=== PATIENT | female | born 1960 | race Caucasian/White ===

== ENCOUNTER 2016-08-28 11:01 | Outpatient (CLI) | payer OTHER ==
--- NOTE | 2016-08-28 12:48 | DIAGNOSTIC IMAGING REPORT ---
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 COMPARISON: Abdominal ultrasound 12/22/2015 FINDINGS: The liver is enlarged with heterogeneous echogenicity and slightly lobular margins. No mass or intrahepatic biliary dilatation. The gallbladder contains two mobile stones measuring six and 7 mm. The wall is normal thickness measuring 1.9 mm No pericholecystic fluid or Umaña sign. The extrahepatic common duct is normal measuring 2.5 mm The visualized pancreas is normal without ductal dilatation or peripancreatic fluid collection. The abdominal aorta is normal in its course and caliber. The retrohepatic inferior vena cava is patent. There is appropriate hepatopetal flow in the portal vein. The right kidney measures 11.2 cm in length. The left kidney measures 11.1 cm in length. Both kidneys demonstrate normal morphology and cortical thickness without hydronephrosis, cyst, solid mass, or shadowing calculus. There is a a 6 mm echogenic focus in the superior pole left kidney. Color Doppler imaging demonstrates normal blood flow in each kidney. The spleen is normal in size measuring 9.6 in length. There is no perihepatic or perisplenic ascites. IMPRESSION: 1. Cholelithiasis. 2. Intrinsic liver disease.
== END 2016-08-28 23:00 ==
LOC: US SRH 11:01
DX: K80.20 Calculus of gallbladder without cholecystitis without obstruction (principal); K76.9 Liver disease, unspecified

== ENCOUNTER 2016-10-09 11:58 | Outpatient (CLI) | payer OTHER | END 2016-10-09 23:00 | LOC: RT SRH 11:58 | DX: Z01.810 Encounter for preprocedural cardiovascular examination (principal); Z01.812 Encounter for preprocedural laboratory examination; N81.2 Incomplete uterovaginal prolapse; Z87.19 Personal history of other diseases of the digestive system | CPT/HCPCS: 90047; 90074; 92710 ==

== ENCOUNTER → 2017-01-21 | Outpatient (CLI) | payer OTHER ==
--- NOTE | 2017-01-21 14:01 | DIAGNOSTIC IMAGING REPORT ---
PROCEDURE: MG UNILATERAL DIAG-LT W/CAD INDICATION: Follow-up left breast nodule (8 months). TECHNIQUE: CC, MLO and true-lateral digital views of left breast. In addition, spot compression CC and MLO views were obtained of the left breast (region of clinical concern). Finally, high-resolution left breast ultrasound was performed (18 mHz). COMPARISON: Comparison is made to left mammogram left breast ultrasound (05/09/2016) and screening mammogram studies (04/24/2016, 04/07/2008). FINDINGS: MAMMOGRAM: Computer-aided detection applied. Moderately dense parenchymal pattern. There is a stable, slightly lobulated nodular density in the medial left breast (0900 position, anterior third). BREAST ULTRASOUND: There is a stable 9 mm x 5 mm slightly lobulated hypoechoic nodule in the medial left breast which demonstrates small punctate calcification, and corresponds to the mammographic nodule. IMPRESSION: 1. There is a stable 9 mm nodular density in the medial left breast. Overall appearance is most compatible with a benign fibroadenoma (versus intramammary lymph node). 2. While there is no evidence of underlying abnormality, left breast ultrasound is recommended at the time of the patient's next mammogram study (April 2017). 3. Findings discussed with the patient. RESULT CODE: 3- Probably benign findings - initial short-interval follow-up suggested. A. A negative report should not delay biopsy if a dominant or clinically suspicious mass is present. 10-15% of cancers are not identified by x-ray. B. A negative report may reinforce clinical impression. C. Adenosis and dense breasts may obscure an underlying neoplasm. D. False positive reports average 6-10%. E.. A yearly screening mammogram is recommended. A reminder letter will be scheduled.
== END ==
LOC: MAM SRH 12-18 10:20
DX: D24.2 Benign neoplasm of left breast (principal)